=== PATIENT | male | born 1965 | race Caucasian/White ===

== ENCOUNTER 2020-11-20 09:01 | Emergency (ER) | payer OTHER ==
[~2020-11-20] VITALS: Ht 182.9 cm; Wt 89.8 kg
--- NOTE | 2020-11-20 09:09 | NUR ---
PT NESTOR [facility] C/O "RINGING ON BOTH EARS." STATES HE CHECKED HIS B/P AND IT WAS HIGH W/ SYSTOLIC BP REACHING OVER THE 200'S. PT DENIES CHEST PAIN. HX OF HTN AND DIABETES. PLACED ON MONITOR. HYPERTENSIVE STILL UPON INITIAL ASESSMENT. AWAITING MD COREY.
--- NOTE | 2020-11-20 09:36 | NUR ---
DR VOSS AT BEDSIDE FOR EVAL.
[2020-11-20] MEDS ORDERED: METOPROLOL TARTRATE 25 MG TABLET ONE (09:41)
[2020-11-20] MEDS ORDERED: ALLO100T PO (09:42)
[2020-11-20] MEDS ORDERED: LISI10TA5 PO (09:42)
[2020-11-20] MEDS ORDERED: METO25TA4 PO (09:42)
[2020-11-20] MEDS ORDERED: METOPROLOL TARTRATE 50 MG TABLET ONE (09:49)
[2020-11-20] MEDS ORDERED: METOPROLOL TARTRATE 25 MG TABLET PO ONE (10:00)
[2020-11-20] MEDS ORDERED: ASPIRIN 325 MG TABLET PO ONE (10:00)
[2020-11-20] MEDS ORDERED: ASPIRIN 325 MG TABLET ONE (10:06)
--- NOTE | 2020-11-20 10:08 | NUR ---
IV LINE STARTED BLOOD DRAWN AND SENT TO LAB.
[2020-11-20 10:18] LABS: BASOPHILS % (AUTO) 0.5 % (0.0-2.0); EOSINOPHILS % (AUTO) 0.6 % (0.0-6.0); HEMATOCRIT 43 % (39-51); HEMOGLOBIN 14.1 g/dL (13.5-17.5); LYMPHOCYTES # (AUTO) 1.3 /CMM (0.8-4.8); LYMPHOCYTES % (AUTO) 18.8 % (20.0-44.0); MEAN CORPUSCULAR HGB CONC 33 g/dl (31.0-36.0); MEAN CORPUSCULAR VOLUME 89 fL (80-96); MONOCYTES # (AUTO) 0.8 /CMM (0.1-1.30); MONOCYTES % (AUTO) 11.5 % (2.0-12.0); NEUTROPHILS # (AUTO) 4.7 /CMM (1.8-8.9); NEUTROPHILS % (AUTO) 68.6 % (43.0-81.0); PLATELET COUNT (AUTO) 261 /CMM (150-450); RED BLOOD CELL COUNT(AUTO) 4.84 MIL/uL (4.5-6.0); WHITE BLOOD COUNT (AUTO) 6.8 K/uL (4.3-11.0)
[2020-11-20 10:21] LABS: CALCIUM, SERUM 8.5 mg/dL (8.5-10.1); CARBON DIOXIDE 31 mmol/L (21-32); CHLORIDE 101 mmol/L (98-107); CREATININE 1.5 mg/dL (0.6-1.3); GLUCOSE 110 mg/dL (74-106); POTASSIUM 4.3 mmol/L (3.5-5.1); SODIUM SERUM 137 mmol/L (136-145); UREA NITROGEN, BLOOD 26 mg/dL (7-18)
[2020-11-20 10:34] LABS: ALANINE AMINOTRANSFERASE 29 U/L (12-78); ALBUMIN 3.6 g/dL (3.4-5.0); ALKALINE PHOSPHATASE 59 U/L (46-116); ASPARTATE AMINOTRANSFERASE 27 U/L (15-37); B-TYPE NATRIURETIC PEPTIDE 103 PG/ML (0-125); BILIRUBIN,DIRECT 0.1 mg/dL (0.0-0.2); BILIRUBIN,TOTAL 0.5 mg/dL (0.2-1.0); TOTAL PROTEIN, SERUM 7.5 g/dL (6.4-8.2)
[2020-11-20 11:17] LABS: CHOLESTEROL 199 mg/dL (<200); HDL CHOLESTEROL 87 mg/dL (40-60); LDL 104 mg/dL (0-99); TRIGLYCERIDES 61 mg/dL (30-150)
[2020-11-20] MEDS ORDERED: hydrALAZINE HCL IV 20 MG VIAL ONE (11:25)
[2020-11-20] MEDS ORDERED: hydrALAZINE HCL IV 20 MG VIAL IV ONE (11:30)
--- NOTE | 2020-11-20 12:15 | NUR ---
PAGED [facility].
[2020-11-20] MEDS ORDERED: ARIP5TAB59 PO (13:05)
[2020-11-20] MEDS ORDERED: AMLO10TA4 PO (13:38)
[2020-11-20] MEDS ORDERED: METO50TA16 PO (13:38)
[2020-11-20 16:48] VITALS: BP 146/68
== END 2020-11-20 16:48 | disposition home or self-care (01) ==
LOC: ER 09:11
DX: I16.0 Hypertensive urgency (principal); Z20.822 Contact with and (suspected) exposure to COVID-19; I11.9 Hypertensive heart disease without heart failure; Z59.0 Homelessness; F17.210 Nicotine dependence, cigarettes, uncomplicated; Z79.899 Other long term (current) drug therapy; N28.9 Disorder of kidney and ureter, unspecified; I44.4 Left anterior fascicular block; H93.19 Tinnitus, unspecified ear
CPT/HCPCS: 36415; 70450; 71045; 80048; 80061; 80076; 82962; 83605; 83880; 84484; 85025; 85730; 87081; 87426; 93005 ×2; 96374; 99285; C9803; J0360; U0003

== ENCOUNTER 2023-07-27 09:25 | Inpatient (IN) | payer OTHER ==
[~2023-07-27] VITALS: Ht 180.3 cm; Wt 85.7 kg
[~2023-07-27 09:25] MED LIST: ALLO100T PO; AMLO10TA4 PO; ARIP5TAB59 PO; METO50TA16 PO
[2023-07-27] MEDS ORDERED: ONDANSETRON HCL/PF 4 MG/2 ML VIAL ONE (09:46)
[2023-07-27] MEDS ORDERED: MORPHINE SULFATE INJ 4 MG/ML DISP.SYRIN ONE (09:47)
[2023-07-27 09:56] LABS: BASOPHILS # (AUTO) 0.1 K/uL (0.0-0.2); BASOPHILS % (AUTO) 0.8 % (0.0-2.0); EOSINOPHILS # (AUTO) 0.1 K/uL (0.0-0.7); EOSINOPHILS % (AUTO) 1.1 % (0.0-6.0); HEMATOCRIT 38 % (39-51); HEMOGLOBIN 12.7 g/dL (13.5-17.5); LYMPHOCYTES # (AUTO) 1.7 K/uL (0.8-4.8); LYMPHOCYTES % (AUTO) 21.6 % (20.0-44.0); MEAN CORPUSCULAR HEMOGLOBIN 28 PG (26.0-33.0); MEAN CORPUSCULAR HGB CONC 33 g/dl (31.0-36.0); MEAN CORPUSCULAR VOLUME 84 fL (80-96); MONOCYTES # (AUTO) 0.7 K/uL (0.1-1.30); MONOCYTES % (AUTO) 9.1 % (2.0-12.0); NEUTROPHILS # (AUTO) 5.3 K/uL (1.8-8.9); NEUTROPHILS % (AUTO) 67.4 % (43.0-81.0); PLATELET COUNT (AUTO) 260 K/uL (150-450); RED BLOOD CELL COUNT(AUTO) 4.57 MIL/uL (4.5-6.0); WHITE BLOOD COUNT (AUTO) 7.8 K/uL (4.3-11.0)
[2023-07-27] MEDS ORDERED: MORPHINE SULFATE INJ 2 MG/ML DISP.SYRIN IV ONE ×3 (10:00→15:00)
[2023-07-27] MEDS ORDERED: AMLODIPINE BESYLATE 5 MG TABLET PO ONE (10:00)
[2023-07-27] MEDS ORDERED: AMLODIPINE BESYLATE 10 MG TABLET ONE (10:00)
[2023-07-27] MEDS ORDERED: IV NS 0.9% 1,000 ML BAG IV ONE (10:00)
[2023-07-27] MEDS ORDERED: ONDANSETRON HCL/PF 4 MG/2 ML VIAL IVP ONE (10:00)
[2023-07-27 10:21] LABS: ALBUMIN 3.8 g/dL (3.4-5.0); BILIRUBIN,DIRECT 0.1 mg/dL (0.0-0.2); BILIRUBIN,TOTAL 0.4 mg/dL (0.2-1.0); CALCIUM, SERUM 9.7 mg/dL (8.5-10.1); CREATININE 1.9 mg/dL (0.6-1.3); POTASSIUM 4.1 mmol/L (3.5-5.1); TOTAL PROTEIN, SERUM 8.2 g/dL (6.4-8.2)
[2023-07-27 10:23] LABS: LACTIC ACID 0.6 mmol/L (0.4-2.0)
[2023-07-27 12:18] LABS: APPEARANCE,URINE CLEAR (CLEAR); BILIRUBIN,URINE NEGATIVE (NEGATIVE); BLOOD, URINE NEGATIVE Ery/uL (NEGATIVE); COLOR,URINE YELLOW (YELLOW); KETONES,URINE NEGATIVE (NEGATIVE); LEUKOCYTE ESTERASE ,URINE TRACE (NEGATIVE); NITRITE, URINE POSITIVE (NEGATIVE); PROTEIN,URINE 2+ mg/dl (NEGATIVE); UGLUCOSE NEGATIVE (NEGATIVE)
[2023-07-27 12:27] LABS: ADD URINE CULTURE YES; BACTERIA,URINE Few /HPF (None Seen); RBC,URINE 0-2 /HPF (0-2); SQUAMOUS EPITHELIAL CELL,UR Rare /HPF (None Seen)
[2023-07-27] MEDS ORDERED: MORPHINE SULFATE INJ 2 MG/ML DISP.SYRIN ONE ×2 (12:33→14:50)
[2023-07-27] MEDS ORDERED: hydrALAZINE HCL IV 20 MG VIAL IV ONE (13:00)
[2023-07-27] MEDS ORDERED: hydrALAZINE HCL IV 20 MG VIAL ONE (13:21)
[2023-07-27] MEDS ORDERED: Z GUARD REMEDY 4 OZ OINT TP PRN (18:00)
[2023-07-27] MEDS ORDERED: HYDROCODONE/APAP 5/325MG TABLET PO PRN (18:00)
[2023-07-27] MEDS ORDERED: ZOLPIDEM TARTRATE 5 MG TABLET PO PRN (18:00)
[2023-07-27] MEDS ORDERED: ACETAMINOPHEN 325 MG TABLET PO PRN (18:00)
[2023-07-27] MEDS ORDERED: ONDANSETRON HCL/PF 4 MG/2 ML VIAL IVP PRN (18:00)
[2023-07-27] MEDS ORDERED: MAGNESIUM HYDROXIDE 30 ML UDC PO PRN (18:00)
[2023-07-27] MEDS ORDERED: MORPHINE SULFATE INJ 2 MG/ML DISP.SYRIN IV PRN (18:00)
[2023-07-27] MEDS ORDERED: MAG HYDROX/AL HYDROX/SIMETH 30 ML UDC PO PRN (18:00)
[2023-07-27] MEDS: IV D5/0.45 NACL 1,000 ML IV PRN (18:16)
[2023-07-27] MEDS: hydrALAZINE HCL IV 20 MG VIAL IV PRN (18:19)
[2023-07-27 20:00] VITALS: BP 164/107; TEMP 98.8; O2SAT 99
[2023-07-28] VITALS: BP_SYST 118; BP_SYST 185; BP_DIAS 110; TEMP 97.8; O2SAT 100
[2023-07-28] MEDS: hydrALAZINE HCL IV 20 MG VIAL IV PRN ×3 (01:09→17:44)
[2023-07-28] MEDS: IV D5/0.45 NACL 1,000 ML IV PRN (02:05)
[2023-07-28 04:20] VITALS: BP 110/104; TEMP 98; O2SAT 97
[2023-07-28 05:49] LABS: BASOPHILS % (AUTO) 0.4 % (0.0-2.0); EOSINOPHILS # (AUTO) 0.1 K/uL (0.0-0.7); EOSINOPHILS % (AUTO) 1.5 % (0.0-6.0); HEMATOCRIT 37 % (39-51); HEMOGLOBIN 11.9 g/dL (13.5-17.5); LYMPHOCYTES # (AUTO) 1.7 K/uL (0.8-4.8); LYMPHOCYTES % (AUTO) 30.2 % (20.0-44.0); MEAN CORPUSCULAR HEMOGLOBIN 28 PG (26.0-33.0); MEAN CORPUSCULAR HGB CONC 32 g/dl (31.0-36.0); MEAN CORPUSCULAR VOLUME 86 fL (80-96); MONOCYTES # (AUTO) 0.6 K/uL (0.1-1.30); MONOCYTES % (AUTO) 10.8 % (2.0-12.0); NEUTROPHILS # (AUTO) 3.2 K/uL (1.8-8.9); NEUTROPHILS % (AUTO) 57.1 % (43.0-81.0); PLATELET COUNT (AUTO) 236 K/uL (150-450); RED BLOOD CELL COUNT(AUTO) 4.28 MIL/uL (4.5-6.0); RED CELL DISTRIBUTION WIDTH 16.3 % (11.5-15.0); WHITE BLOOD COUNT (AUTO) 5.6 K/uL (4.3-11.0)
[2023-07-28 06:11] LABS: CALCIUM, SERUM 8.6 mg/dL (8.5-10.1); CREATININE 1.5 mg/dL (0.6-1.3); PHOSPHORUS 2.9 mg/dL (2.5-4.9); POTASSIUM 3.7 mmol/L (3.5-5.1)
[2023-07-28 07:00] VITALS: BP 169/113; TEMP 99.1; O2SAT 98
[2023-07-28] MEDS ORDERED: DIATR MEGLU/DIATRIZOATE SODIUM 120 ML BOTTLE (GASTROGRAPHIN) ONE (07:45)
[2023-07-28] MEDS ORDERED: PANTOPRAZOLE 40 MG VIAL IV SCH (09:00)
[2023-07-28 12:00] VITALS: BP 153/99; TEMP 98.6; O2SAT 97
[2023-07-28] MEDS ORDERED: CEPHALEXIN MONOHYDRATE 500 MG CAPSULE PO SCH (12:00)
[2023-07-28 16:00] VITALS: BP 166/108; TEMP 98.1; O2SAT 97
[2023-07-28 17:44] VITALS: BP 172/113
== END 2023-07-28 19:00 | disposition left against medical advice (07) | DRG 254 ==
LOC: ER 09:27 → MED 15:33 → TELE 17:48
PROVIDERS: ADMIT Student in an Organized Health Care Education/Training Program; ATTEND Student in an Organized Health Care Education/Training Program
DX: K40.30 Unilateral inguinal hernia, with obstruction, without gangrene, not specified as recurrent (principal); N17.0 Acute kidney failure with tubular necrosis; I42.9 Cardiomyopathy, unspecified; I16.0 Hypertensive urgency; D64.9 Anemia, unspecified; N39.0 Urinary tract infection, site not specified; N18.9 Chronic kidney disease, unspecified; Z59.00 Homelessness unspecified; Z91.199 Patient's noncompliance with other medical treatment and regimen due to unspecified reason; I12.9 Hypertensive chronic kidney disease with stage 1 through stage 4 chronic kidney disease, or unspecified chronic kidney disease; F17.210 Nicotine dependence, cigarettes, uncomplicated; Z71.6 Tobacco abuse counseling
CPT/HCPCS: 36415; 74250-TC; 76770-TC; 80048-TC; 80076-TC; 81001; 83605-TC; 83690-TC; 83735-TC; 84100-TC; 85025-TC; 87086-TC; A4223; C9113; G0378; J0360; J2270; J2405; J3490; J7030; Q9963